=== PATIENT | male | born 1980 | race Caucasian/White ===

== ENCOUNTER 2017-07-03 06:41 | Emergency (ER) | payer SELFPAY ==
[~2017-07-03 06:41] MED LIST: POLY10O EACH EYE; ZITH250T PO
[2017-07-03 06:53] VITALS: BP 190/97; PULSE 75; RESP 18; TEMP 97.5; O2SAT 100
[2017-07-03] MEDS ORDERED: ALPR.5 PO (06:53)
[2017-07-03] MEDS ORDERED: ADDE10 PO (06:53)
[2017-07-03 07:19] VITALS: BP 159/82; PULSE 95; RESP 17; O2SAT 100
--- NOTE | 2017-07-03 07:35 | PD ---
HPI Chief Complaint: GI Complaint Time Seen by Provider: 07:25 Travel History International Travel<30 days: No Contact w/Intl Traveler<30days: No Traveled to known affect area: No History of Present Illness HPI This patient woke up this morning and had abdominal pain. The location was left lower quadrant. Severity was moderate. Lasted about 3 hours but has completely resolved spontaneously. No alleviating factors. There are no exacerbating factors. He had one episode of vomiting and one episode of diarrhea. He denies fever. No urinary complaints or right sided pain. PFSH Past Medical History Cancer: No Cerebrovascular Accident: No Diabetes: No Diminished Hearing: No Immune Disorder: No Myocardial Infarction: No Tetanus Vaccination: > 5 Years Influenza Vaccination: No Past Surgical History Genitourinary Surgery: Yes (RIGHT IHR) Other Surgery: Yes (HERNIA REPAIR) Social History Alcohol Use: Yes (3X WEEK) Tobacco Use: Yes (1PPD) Substance Use: Yes (COKE AND MARIJUANA IN REHAB NOW) Allergies-Medications (Allergen,Severity, Reaction): Coded Allergies: No Known Allergies (Verified Adverse Reaction, Unknown, 07/03/17) Reported Meds & Prescriptions Reported Meds & Active Scripts Active Reported Xanax (Alprazolam) 0.5 Mg Tab 0.5 Mg PO Q12HR PRN Adderall (Amphetamine-Dextroamphetamine) 10 Mg Tab 10 Mg PO BID Avoid late evening doses. Space doses at least 4 to 6 hours if more than once/day dosing. Review of Systems General / Constitutional: No: Fever Eyes: No: Visual changes HENT: No: Headaches Cardiovascular: No: Chest Pain or Discomfort Respiratory: No: Shortness of Breath Gastrointestinal: Positive: Nausea, Vomiting, Diarrhea, Abdominal Pain Genitourinary: No: Dysuria Musculoskeletal: No: Pain Skin: No Rash Neurologic: No: Weakness Psychiatric: No: Depression Endocrine: No: Polydipsia Hematologic/Lymphatic: No: Easy Bruising Physical Exam Narrative GENERAL: Well-nourished, well-developed patient in no apparent distress. SKIN: Focused skin assessment reveals no rash and nodules. Skin is Warm and dry. Multiple burn/abrasion wounds from welding HEAD: Atraumatic. Normocephalic. EYES: Pupils equal and round. No scleral icterus. No injection or drainage. ENT: No nasal bleeding or discharge. Mucous membranes pink and moist. NECK: Trachea midline. No JVD. CARDIOVASCULAR: Regular rate and rhythm. No murmur appreciated. RESPIRATORY: No accessory muscle use. Clear to auscultation. Breath sounds equal bilaterally. GASTROINTESTINAL: Abdomen soft, non-tender, nondistended. Hepatic and splenic margins not palpable. MUSCULOSKELETAL: No obvious deformities. No clubbing. No cyanosis. No edema. NEUROLOGICAL: Awake and alert. No obvious cranial nerve deficits. Motor grossly within normal limits. Normal speech. PSYCHIATRIC: Appropriate mood and affect; insight and judgment normal. Data Data Last Documented VS Vital Signs Date Time Temp Pulse Resp B/P (MAP) Pulse Ox O2 Delivery O2 Flow Rate FiO2 07/03/17 07:19 95 17 159/82 (107) 100 Room Air 07/03/17 06:53 97.5 Orders Orders Iv Access Insert/Monitor (07/03/17 07:32) Complete Blood Count With Diff (07/03/17 07:32) Basic Metabolic Panel (Bmp) (07/03/17 07:32) Urinalysis - C+S If Indicated (07/03/17 07:32) Labs Laboratory Tests Test 07/03/17 08:03 White Blood Count 6.8 TH/MM3 Red Blood Count 4.75 MIL/MM3 Hemoglobin 14.6 GM/DL Hematocrit 43.5 % Mean Corpuscular Volume 91.6 FL Mean Corpuscular Hemoglobin 30.7 PG Mean Corpuscular Hemoglobin Concent 33.5 % Red Cell Distribution Width 11.3 % Platelet Count 201 TH/MM3 Mean Platelet Volume 8.4 FL Neutrophils (%) (Auto) 69.3 % Lymphocytes (%) (Auto) 21.9 % Monocytes (%) (Auto) 7.6 % Eosinophils (%) (Auto) 0.7 % Basophils (%) (Auto) 0.5 % Neutrophils # (Auto) 4.8 TH/MM3 Lymphocytes # (Auto) 1.5 TH/MM3 Monocytes # (Auto) 0.5 TH/MM3 Eosinophils # (Auto) 0.0 TH/MM3 Basophils # (Auto) 0.0 TH/MM3 CBC Comment DIFF FINAL Differential Comment Blood Urea Nitrogen 12 MG/DL Creatinine 0.93 MG/DL Random Glucose 129 MG/DL Calcium Level 8.7 MG/DL Sodium Level 140 MEQ/L Potassium Level 3.9 MEQ/L Chloride Level 105 MEQ/L Carbon Dioxide Level 25.9 MEQ/L Anion Gap 9 MEQ/L Estimat Glomerular Filtration Rate 90 ML/MIN MDM Medical Decision Making Medical Screen Exam Complete: Yes Emergency Medical Condition: Yes Medical Record Reviewed: Yes Differential Diagnosis Diverticulitis, kidney stone, colitis Narrative Course I have reviewed the patient's electronic medical record. IV placed CBC is normal Metabolic profile is normal At this point patient is asymptomatic with soft benign nontender abdomen We discussed CT imaging but given his benign presentation and resolution of all symptoms we are Holding off on that at this point On recheck he feels fine. The patient was advised to follow up with their physician and return if they worsen. Diagnosis Primary Impression: Abdominal pain Qualified Codes: R10.32 - Left lower quadrant pain Additional Instructions: The patient was advised to follow up with their physician and return if they worsen. Med/Other Pt SpecificInfo: Other Disposition: 01 DISCHARGE HOME Condition: Stable Raul Buenrostro MD Jul 03, 2017 07:35
[2017-07-03 08:57] LABS: BILIRUBIN, URINE NEG (NEG); BLOOD, URINE LARGE (NEG); GLUCOSE,URINE NEG (NEG); KETONE, URINE NEG (NEG); NITRITE,URINE NEG (NEG); PH, URINE 6.5 (5.0-8.5); URINE LEUKOCYTE ESTERASE NEG (NEG)
[2017-07-03 09:05] LABS: BACTERIA, URINE RARE /hpf; RBC, URINE 0-3 /hpf (0-3); URINE COLOR YELLOW (YELLW/STRAW); WBC, URINE 0-2 /hpf (0-5)
[2017-07-03 09:31] LABS: AUTOMATED NEUTROPHIL # 9.9 TH/MM3 (1.8-7.7); BASOPHIL # 0.1 TH/MM3 (0-0.2); BASOPHIL % 0.7 % (0.0-2.0); EOSINOPHIL # 0.1 TH/MM3 (0-0.4); EOSINOPHIL % 0.5 % (0.0-4.0); HEMATOCRIT 46.2 % (39.0-51.0); HEMOGLOBIN 15.5 GM/DL (13.0-17.0); LYMPH % 10.4 % (9.0-44.0); LYMPHOCYTE # 1.2 TH/MM3 (1.0-4.8); MEAN CELL VOLUME 83.7 FL (80.0-100.0); MEAN CORPUSCULAR HEMOGLOBIN 28.1 PG (27.0-34.0); MEAN CORPUSCULAR HGB CONC 33.5 % (32.0-36.0); MONO % 3.9 % (0.0-8.0); MONOCYTE # 0.5 TH/MM3 (0-0.9); NEUT % 84.5 % (16.0-70.0); PLATELET COUNT 330 TH/MM3 (150-450); RED BLOOD COUNT 5.52 MIL/MM3 (4.50-5.90); RED CELL DISTRIBUTION WIDTH 12.7 % (11.6-17.2)
[2017-07-03 09:35] LABS: WHITE BLOOD COUNT 11.8 TH/MM3 (4.0-11.0)
[2017-07-03 10:12] LABS: CREATININE 0.9 MG/DL (0.60-1.30)
[2017-07-03 10:14] LABS: CALCIUM 9.1 MG/DL (8.5-10.1)
[2017-07-03 10:15] LABS: BICARBONATE 29.4 MEQ/L (21.0-32.0)
== END 2017-07-03 10:46 | disposition home or self-care (01) ==
LOC: PHED 06:41
DX: R10.32 Left lower quadrant pain (principal); R11.2 Nausea with vomiting, unspecified; R19.7 Diarrhea, unspecified; F17.200 Nicotine dependence, unspecified, uncomplicated; Z79.899 Other long term (current) drug therapy
CPT/HCPCS: 80048; 81001; 85025; 99283